=== PATIENT | male | born 1970 | race Caucasian/White ===

== ENCOUNTER → 2020-08-27 | Outpatient (CLI) | payer BC, OTHER ==
--- NOTE | 2020-08-27 12:46 | REP ---
INDICATION: DD LUMBAR REGION. Low back pain radiating down the left leg. COMPARISON: None. TECHNIQUE: Sagittal and axial T1 and T2-weighted scans are acquired in the usual fashion with and without fat saturation. Sequences include spin echo, turbo spin-echo, and STIR imaging sequences. FINDINGS: Lumbar vertebral body heights are preserved. Alignment is normal. There is no evidence of spondylolysis or spondylolisthesis. No extra vertebral abnormality is appreciated. Aorta is normal in caliber. Tip of the conus medullaris is normal in position and appearance at L1. At T12-L1, there is mild degenerative narrowing of the disc. A left posterior focal disc protrusion is seen indenting the ventral margin of the thecal sac. There is mild overall narrowing of the central canal with midline AP dimension at T12-L1 of 8.8 mm. At L1-L2, there is diffuse moderate disc bulging which effaces the ventral margin of the thecal sac and produces mild central canal stenosis as well. The AP dimension of the thecal sac at L1-L2 is 6 mm. Pedicles are developmentally short. There is a small focal central disc protrusion in fee really. No foraminal narrowing is seen. At L2-3, there is a small focal disc protrusion right paracentral disc margin indenting the thecal sac. Mild central canal stenosis is seen predominantly developmental. Midline AP dimension of the thecal sac at L2-3 is 7 mm. No foraminal stenosis is seen. At L3-4, there is degenerative narrowing of the disc. There is a moderate left paracentral focal disc protrusion superimposed on diffuse disc bulging. This produces moderate central canal stenosis/thecal sac compression. There is minimal facet and ligamentum flavum hypertrophy contributing to this along with developmentally short pedicles. the thecal sac measures 6.9 mm in AP dimension in the midline. There is mild bilateral neural foraminal narrowing at L3-4 due to disc bulging. At L4-L5, there is degenerative narrowing of the disc. There is diffuse disc bulging. Bilateral neural foraminal narrowing is seen right greater than left due to facet hypertrophy and disc bulging. Canal size is borderline. Pedicles are developmentally short. At L5-S1, there is central disc bulging. No thecal sac compression is seen. There is right-sided neural foraminal narrowing due to facet hypertrophy and disc bulging. IMPRESSION: Congenitally small lumbosacral canal with superimposed degenerative disc disease and disc protrusions at multiple levels producing central canal stenosis as above. Thecal sac compression is most pronounced at L3-4 where there is a superimposed disc protrusion. There appears to be a disc protrusion at T12-L1 at the top of the field of view. <Electronically signed by Ousmane Sullivan > 08/27/20 [id number]
== END ==
LOC: M RAD 10:55
PROVIDERS: ATTEND Family Medicine
DX: M51.26 Other intervertebral disc displacement, lumbar region (principal)

== ENCOUNTER → 2021-05-05 | Outpatient (CLI) | payer BC, OTHER ==
[~2021-05-05] MED LIST: AFRI0.058; ALLE180T33 PO; JENT2.5T5 PO; LISI2.5T9 PO; NAPR-837 PO
== END ==
LOC: M LABSMTC 09:36
PROVIDERS: ATTEND Anesthesiology
DX: Z01.812 Encounter for preprocedural laboratory examination (principal); Z20.822 Contact with and (suspected) exposure to COVID-19

== ENCOUNTER 2021-05-10 09:22 | Day surgery (SDC) | payer BC, OTHER ==
[~2021-05-10] VITALS: Ht 185.4 cm; Wt 180.5 kg
[~2021-05-10 09:22] MED LIST changes: +NS 1,000 ML IV ONE
[2021-05-10] MEDS ORDERED: LIDOCAINE 2% 100MG/5ML SDV (FOR ANES.) As Ordered ONE (10:10)
[2021-05-10] MEDS ORDERED: propofoL 200 MG/20 ML VIAL As Ordered ONE ×2 (10:11→10:53)
[2021-05-10 11:20] VITALS: BP 132/75
== END 2021-05-10 11:43 | disposition home or self-care (01) ==
LOC: M OPP 09:22
PROVIDERS: ATTEND Internal Medicine Gastroenterology
DX: Z12.11 Encounter for screening for malignant neoplasm of colon (principal); Z79.899 Other long term (current) drug therapy

== ENCOUNTER → 2024-11-05 | Outpatient (CLI) | payer BC ==
[~2024-11-05] MED LIST changes: -AFRI0.058; -NS 1,000 ML IV ONE; +OXYM15SP2
== END ==
LOC: M PLAIMG 12:54
PROVIDERS: ATTEND Physician Assistant Medical
DX: H92.11 Otorrhea, right ear (principal); H70.93 Unspecified mastoiditis, bilateral; H66.91 Otitis media, unspecified, right ear

== ENCOUNTER → 2024-11-11 | Outpatient (REF) | payer BC | LOC: M LAB REF 17:20 | PROVIDERS: ATTEND Physician Assistant Medical | DX: H92.11 Otorrhea, right ear (principal) ==